=== PATIENT | male | born 1945 | race Caucasian/White ===

== ENCOUNTER 2017-12-10 12:19 | Inpatient (IN) | payer MEDICARE, OTHER ==
[~2017-12-10] VITALS: Ht 182.9 cm; Wt 99.4 kg
[2017-12-10] VITALS (17 sets, daily range): BP systolic 128–166; BP diastolic 70–107
[~2017-12-10 12:19] MED LIST: NO HOME MEDS
[2017-12-10 12:54] LABS: BASOPHILS % (AUTO) 0.3 % (0-1); EOSINOPHILS # (AUTO) 0.3 X10'3 (0-0.9); HEMATOCRIT 52.2 % (42.0-52.0); LYMPHOCYTES # (AUTO) 1.5 X10'3 (1.1-4.8); LYMPHOCYTES % (AUTO) 11.7 % (21-51); MEAN CORPUSCULAR HEMOGLOBIN 27.3 PG (27.0-31.0); MEAN CORPUSCULAR HGB CONC 32.6 % (33.0-36.5); MEAN CORPUSCULAR VOLUME 83.7 FL (78-98); MEAN PLATELET VOLUME 8.2 FL (7.4-10.4); MONOCYTES # (AUTO) 0.6 X10'3 (0-0.9); MONOCYTES % (AUTO) 5.1 % (2-12); NEUTROPHILS # (AUTO) 10.2 X10'3 (1.8-7.7); NEUTROPHILS % (AUTO) 80.9 % (42-75); PLATELET COUNT 236 X10'3 (140-440); RED BLOOD COUNT 6.24 X10'6 (4.70-6.10); RED CELL DISTRIBUTION WIDTH 15.3 % (11.5-14.5); WHITE BLOOD COUNT 12.6 X10'3 (4.5-11.0)
[2017-12-10 13:09] LABS: PARTIAL THROMBOPLASTIN TIME 27 SECONDS (22-32); PROTHROMBIN TIME 10.1 SECONDS (9.0-12.0)
[2017-12-10] MEDS ORDERED: normal saline 1000ml 1,000 ML IV ONE ×2 (13:14→23:40)
[2017-12-10] MEDS ORDERED: nitroGLYCERIN 0.4mg/hour patch TD ONE (13:15)
[2017-12-10] MEDS ORDERED: normal saline 1000ML IV soln IVB ONE (13:15)
[2017-12-10 13:16] LABS: ALANINE AMINOTRANSFERASE 65 U/L (12-78); ALBUMIN 4.3 G/DL (3.4-5.0); ALKALINE PHOSPHATASE 84 IU/L (46-116); ANION GAP 7 (8-16); ASPARTATE AMINO TRANSFERASE 135 U/L (10-37); BLOOD UREA NITROGEN 12 MG/DL (7-18); BUN/CREATININE RATIO 10.6 (5.4-32.0); CALCIUM 9.5 MG/DL (8.5-10.1); CHLORIDE 98 MMOL/L (99-107); CREATININE 1.13 MG/DL (0.60-1.10); GLUCOSE 167 MG/DL (70-104); POTASSIUM 4.2 MMOL/L (3.5-5.1); SODIUM 135 MMOL/L (135-145); TOTAL CARBON DIOXIDE 29.6 MMOL/L (24-32); TOTAL PROTEIN 8.8 G/DL (6.4-8.2); eGFR 64 ML/MIN
[2017-12-10 13:23] LABS: CREATINE KINASE 1057 U/L (39-308); MAGNESIUM 1.5 MG/DL (1.5-2.4); MYOGLOBIN 717 ng/ml (16-96)
[2017-12-10] MEDS: enoxaparin 100mg/ml syringe SUBCUT ONE ×2 (13:29→13:56)
[2017-12-10] MEDS ORDERED: tirofiban 5mg in NS 100mL 100 ML IV SCH (13:30)
[2017-12-10] MEDS ORDERED: nitroGLYCERIN-Tridil 50MG/D5W 250 ML IV PRN (13:32)
[2017-12-10] MEDS ORDERED: metoprolol tartrate 1mg/ml inj IV ONE (13:35)
[2017-12-10] MEDS: tirofiban 5mg in NS 100mL 100 ML IV SCH ×2 (13:57→16:12)
[2017-12-10] MEDS ORDERED: normal saline 1000ml 1,000 ML IV SCH (14:08)
[2017-12-10] MEDS ORDERED: acetaminophen 325mg tablet PO PRN (14:10)
[2017-12-10] MEDS ORDERED: HYDROmorphone 1 mg/ml syringe IV PRN (14:10)
[2017-12-10] MEDS ORDERED: potassium Cl 40MEQ/NS 500ml 500 ML IV PRN ×2 (14:10)
[2017-12-10] MEDS ORDERED: magnesium Cl slow-release 64mg tablet PO PRN ×2 (14:10→16:00)
[2017-12-10] MEDS ORDERED: magnesium 4gm in 100ml NS 100 ML IV PRN ×2 (14:10→16:00)
[2017-12-10] MEDS ORDERED: magnesium 2GM in 50ml NS 50 ML IV PRN ×2 (14:10→16:00)
[2017-12-10] MEDS ORDERED: ondansetron/PF 4mg/2ml inj IV PRN (14:10)
[2017-12-10] MEDS ORDERED: magnesium hydroxide 30ml (MOM) UD suspension PO PRN (14:10)
[2017-12-10] MEDS: K and/or MAG REPLACEMENT MC SCH (14:10)
[2017-12-10] MEDS ORDERED: mag hydrox/Alum hydrox/simeth 30ml oral suspension PO PRN (14:10)
[2017-12-10] MEDS ORDERED: potassium Cl 20 mEq SR tablet PO PRN ×2 (14:10)
[2017-12-10] MEDS ORDERED: aspirin 325mg tablet PO ONE (14:25)
[2017-12-10] MEDS ORDERED: HYDR-569 PO (16:49)
[2017-12-10] MEDS ORDERED: ASPI-845 PO (16:49)
[2017-12-10] MEDS ORDERED: aspirin 325mg tablet, delayed-release (Ecotrin) PO PRN ×2 (23:30→23:45)
[2017-12-10] MEDS ORDERED: HYDROcodone/acetaminophen 5mg/325mg tablet PO PRN (23:30)
[2017-12-11] VITALS (9 sets, daily range): BP systolic 120–141; BP diastolic 63–81
[2017-12-11] MEDS: lisinopril 10 MG tablet PO SCH ×2 (00:20→08:00)
[2017-12-11] MEDS: carvedilol 6.25mg tablet PO SCH ×2 (00:22→08:00)
[2017-12-11] MEDS: enoxaparin 100mg/ml syringe SUBCUT SCH ×2 (00:23→08:01)
[2017-12-11] MEDS ORDERED: normal saline 1000ml 1,000 ML IV SCH (03:30)
[2017-12-11 06:07] LABS: BASOPHILS % (AUTO) 0.4 % (0-1); EOSINOPHILS # (AUTO) 0.2 X10'3 (0-0.9); EOSINOPHILS % (AUTO) 1.9 % (0-6); HEMATOCRIT 41.1 % (42.0-52.0); HEMOGLOBIN 13.8 g/dl (14.0-17.9); LYMPHOCYTES # (AUTO) 1.4 X10'3 (1.1-4.8); LYMPHOCYTES % (AUTO) 13.6 % (21-51); MEAN CORPUSCULAR HGB CONC 33.6 % (33.0-36.5); MEAN CORPUSCULAR VOLUME 83.3 FL (78-98); MEAN PLATELET VOLUME 8.4 FL (7.4-10.4); MONOCYTES # (AUTO) 1.3 X10'3 (0-0.9); NEUTROPHILS # (AUTO) 7.6 X10'3 (1.8-7.7); NEUTROPHILS % (AUTO) 72.1 % (42-75); PLATELET COUNT 199 X10'3 (140-440); RED BLOOD COUNT 4.93 X10'6 (4.70-6.10); RED CELL DISTRIBUTION WIDTH 15.1 % (11.5-14.5); WHITE BLOOD COUNT 10.6 X10'3 (4.5-11.0)
[2017-12-11 06:25] LABS: ALANINE AMINOTRANSFERASE 67 U/L (12-78); ALBUMIN 3.1 G/DL (3.4-5.0); ALBUMIN/GLOBULIN RATIO 0.9 (1.1-1.5); ALKALINE PHOSPHATASE 59 IU/L (46-116); ANION GAP 5 (8-16); ASPARTATE AMINO TRANSFERASE 259 U/L (10-37); BILIRUBIN,TOTAL 1.5 MG/DL (0.1-1.0); BLOOD UREA NITROGEN 13 MG/DL (7-18); BUN/CREATININE RATIO 11.8 (5.4-32.0); CALCIUM 8.4 MG/DL (8.5-10.1); CHLORIDE 103 MMOL/L (99-107); CHOL/HDL RATIO 3.2 (0.00-4.99); CHOLESTEROL 127 MG/DL (0-200); GLUCOSE 119 MG/DL (70-104); HDL CHOLESTEROL 40 MG/DL (35-60); LDL CHOLESTEROL 81 MG/DL (50-100); MAGNESIUM 1.5 MG/DL (1.5-2.4); SODIUM 135 MMOL/L (135-145); TOTAL CARBON DIOXIDE 26.8 MMOL/L (24-32); TOTAL PROTEIN 6.5 G/DL (6.4-8.2); TRIGLYCERIDES 93 MG/DL (20-135); eGFR 66 ML/MIN
[2017-12-11] MEDS: K and/or MAG REPLACEMENT MC SCH (07:57)
[2017-12-11] MEDS ORDERED: ticagrelor 90mg tablet PO SCH (08:00)
[2017-12-11] MEDS ORDERED: atorvastatin 20mg tablet PO SCH (08:00)
[2017-12-11] MEDS ORDERED: FLU VACC QS2017-18 36MOS UP/PF 60 MCG/0.5 ML SYRINGE IMVAC ONE (10:00)
[2017-12-11] MEDS ORDERED: pneumococcal 23-VAL P-sac vacc 25 mcg/0.5ml vial IMVAC ONE (10:00)
[2017-12-11] MEDS ORDERED: ATOR20TA66 PO (10:07)
[2017-12-11] MEDS ORDERED: CARV6.253 PO (10:07)
[2017-12-11] MEDS ORDERED: LISI10TA4 PO (10:07)
[2017-12-11] MEDS ORDERED: ASPI-1265 PO (10:07)
[2017-12-11] MEDS ORDERED: TICA90TA PO (10:23)
[2017-12-12] MEDS ORDERED: aspirin 81mg tab.chew PO SCH (08:30)
== END 2017-12-11 11:45 | disposition home or self-care (01) | DRG 281 ==
LOC: ER 12:19 → ED HOLD 14:08 → PCU 3S 19:30
PROVIDERS: ADMIT Internal Medicine; ATTEND Family Medicine
DX: I21.4 Non-ST elevation (NSTEMI) myocardial infarction (principal); I16.1 Hypertensive emergency; I10 Essential (primary) hypertension; R01.1 Cardiac murmur, unspecified; Z90.49 Acquired absence of other specified parts of digestive tract; Z23 Encounter for immunization; Z79.899 Other long term (current) drug therapy; Z87.01 Personal history of pneumonia (recurrent); Z82.49 Family history of ischemic heart disease and other diseases of the circulatory system
CPT/HCPCS: 36415; 71045; 80053; 80061; 82550; 83735; 83874; 83880; 84484; 85025; 85610; 85730; 90732; 93005; 93306; 96361; 96374; 96375; 99291; J1650; J3246; J3490; J7030; Q2037